=== PATIENT | female | born 1935 | race Caucasian/White ===

== ENCOUNTER 2021-08-12 09:10 | Inpatient (IN) | payer MEDICARE, OTHER ==
[2021-08-12] MEDS ORDERED: Norepinephrine 8 MG/0.9% NS 250 ML ONE (09:19)
[2021-08-12 09:48] LABS: Actual Bicarbonate (HCO3a) 26.2 mEq/L (22-28); Analyzer IN Cardio ER; Base Excess (BEa) 0.7 mEq/L (-2.0 to +3.0); CO2 Tension 45.8 mmHg (35.0-45.0); Calcium, Ionized (arterial) 1.19 mmol/L (1.12-1.30); Carboxyhemoglobin (COHb) 0.1 gm% (0.0-3.0); Hemoglobin (Hb) 11.9 g/dL (12.0-16.0); O2 Tension (PaO2), arterial 127.6 mmHg (> 60.0); Potassium - ABG Lab 3.93 mmol/L (3.70-5.30); pH, Arterial 7.38 (7.35-7.45)
[2021-08-12 09:57] LABS: Puncture Site RRA
[2021-08-12] MEDS ORDERED: fentaNYL Citrate-0.9 % NaCl/PF 100 ML IVPB SCH (10:00)
[2021-08-12] MEDS ORDERED: Fentanyl CADD 100 ML IV SCH (10:00)
[2021-08-12] MEDS ORDERED: Bisacodyl 5 MG TAB PO PRN (11:10)
[2021-08-12] MEDS ORDERED: Acetaminophen 325 MG TAB PER TUBE PRN (11:10)
[2021-08-12] MEDS ORDERED: Ondansetron PF 4 MG/2 ML Vial IVP PRN (11:10)
[2021-08-12] MEDS ORDERED: Cefepime 2 GM in Sodium Chloride 0.9% 100 ML IVPB SCH ×3 (11:12→21:00)
[2021-08-12 11:27] LABS: Hemoglobin 11.6 g/dL (12.0-16.0); Mean Corpuscular HGB CONC 30.8 g/dL (32.0-36.0); Mean Corpuscular Hemoglobin 30.8 pg (27.0-31.0); Mean Corpuscular Volume 99.7 fL (78.0-98.0); Mean Platelet Volume 9.3 fL (7.4-10.4); Platelet Count 124 thou/uL (130-400); RBC Distribution Width 14.3 % (11.5-14.5); Red Blood Cell (RBC) Count 3.76 mill/uL (4.20-5.40); White Blood Cell (WBC) Count 5.5 thou/uL (4.8-10.8)
[2021-08-12] MEDS ORDERED: Ventilator Sedation Protocol 1 EACH FS SCH (11:35)
[2021-08-12] MEDS ORDERED: Norepinephrine 8 MG/0.9% NS 250 ML IVPB SCH (11:45)
[2021-08-12 11:56] LABS: Hemoglobin A1c 5.1 % (4.0-6.0)
[2021-08-12 12:25] LABS: INR-International Normal Ratio 1.4; Prothrombin Time 17.8 sec (12.0-14.7)
[2021-08-12 12:26] LABS: PTT 33.2 sec (22.9-36.1)
[2021-08-12] MEDS ORDERED: Morphine 2 MG/ML VIAL SLOW IVP PRN (12:30)
[2021-08-12] MEDS ORDERED: fentaNYL Citrate-0.9 % NaCl/PF 100 ML IV SCH (12:30)
[2021-08-12] MEDS ORDERED: Propofol 1,000 MG/100 ML VIAL IV PRN (12:30)
[2021-08-12] MEDS ORDERED: DISCONTINUE PREVIOUS NARCOTIC PAIN MEDICATIONS AND BENZODIAZEPINES FS SCH (12:30)
[2021-08-12] MEDS ORDERED: Lorazepam 2 MG/ML VIAL SLOW IVP PRN (12:30)
[2021-08-12] MEDS ORDERED: Propofol BOLUS 1,000 MG/100 ML VIAL IV PRN (12:30)
[2021-08-12] MEDS ORDERED: Fentanyl BOLUS 250 ML IVPB PRN (12:30)
[2021-08-12 13:31] LABS: Troponin I 0.059 ng/mL (< 0.028)
[2021-08-12] MEDS: methylPREDNISolone Sod Succ 40 MG VIAL IVP SCH ×2 (14:10→20:15)
[2021-08-12] MEDS: VANCOMYCIN 1.25 GM/250 ML BAG 1.25 GM in Premix Bag 1 BAG IVPB SCH (17:20)
[2021-08-12 18:06] LABS: Strep pneumo Urine Ag NEGATIVE (NEGATIVE)
[2021-08-12] MEDS: Senokot S 8.6-50 MG TAB PER TUBE SCH (20:15)
[2021-08-12] MEDS: Atorvastatin Calcium 40 MG TAB PO SCH (20:15)
[2021-08-12] MEDS: Dorzolamide HCl 2% Ophth Soln 10 ml Bottle EA EYE SCH (20:16)
[2021-08-12] MEDS: Brimonidine Tartrate 0.2% Ophth Soln 5 ml Bottle EA EYE SCH (20:16)
[2021-08-12] MEDS: Montelukast Sodium 10 mg Tablet PO SCH (20:16)
[2021-08-12] MEDS: Famotidine/PF 20 mg/2ml Vial SLOW IVP SCH (20:17)
[2021-08-12] MEDS: Enoxaparin Sodium 80 MG/0.8 ML SYRINGE SC SCH (20:17)
[2021-08-12] MEDS: Latanoprost 0.005% Ophth Soln 2.5 ml Bottle EA EYE SCH (20:19)
[2021-08-12] MEDS ORDERED: Non-Formulary Item 1 EACH (Bimatoprost [Lumigan] 5 ML Drops) OP SCH (21:00)
[2021-08-12] MEDS: Sodium Chloride 0.9% 1,000 ML IV SCH (22:33)
[2021-08-13] MEDS: methylPREDNISolone Sod Succ 40 MG VIAL IVP SCH ×3 (00:27→20:26)
[2021-08-13] MEDS ORDERED: Cefepime 2 GM in Sodium Chloride 0.9% 100 ML IVPB SCH (01:00)
[2021-08-13 03:47] LABS: #Lymphocytes 0.5 thou/uL (1.20-3.40); #Monocytes 0.1 thou/uL (0.11-0.59); #Neutrophils 3.5 thou/uL (1.40-6.50); %Eosinophils 0.1 % (0.0-10.0); %Lymphocytes 11.1 % (21.0-51.0); %Monocytes 2.6 % (0.0-10.0); %Neutrophils 86.2 % (42.0-75.0); Hemoglobin 10.7 g/dL (12.0-16.0); Mean Corpuscular HGB CONC 32.8 g/dL (32.0-36.0); Mean Corpuscular Hemoglobin 31.7 pg (27.0-31.0); Mean Corpuscular Volume 96.5 fL (78.0-98.0); Mean Platelet Volume 7.6 fL (7.4-10.4); Platelet Count 153 thou/uL (130-400); RBC Distribution Width 14.4 % (11.5-14.5); Red Blood Cell (RBC) Count 3.37 mill/uL (4.20-5.40); White Blood Cell (WBC) Count 4.1 thou/uL (4.8-10.8)
[2021-08-13 03:51] LABS: INR-International Normal Ratio 1.8; Prothrombin Time 20.9 sec (12.0-14.7)
[2021-08-13 03:52] LABS: PTT 40.1 sec (22.9-36.1)
[2021-08-13 04:09] LABS: ALT (SGPT) 7 U/L (8-55); AST (SGOT) 17 U/L (5-34); Albumin 3.1 g/dL (3.4-4.8); Alkaline Phosphatase 88 U/L (40-110); Anion Gap 12 mmol/L (10-20); BUN (Urea Nitrogen) 24 mg/dL (9.8-20.1); Bilirubin, Direct 0.6 mg/dL (0.1-0.3); Bilirubin, Total 1.1 mg/dL (0.2-1.2); CRP (Inflammatory) 1.09 mg/dL (= or < 0.5); Calc. Creatinine Clearance 61 mL/min (70-130); Carbon Dioxide 28 mmol/L (23-31); Cardiac Risk 2.2 (Less than 4.5); Chloride 101 mmol/L (98-107); Cholesterol 119 mg/dl (< 200 Desired); Glucose 131 mg/dL (83-110); HDL Cholesterol 55 mg/dL (>60 Neg Risk); LDL Cholesterol, Calculated 52 mg/dL; Magnesium 1.9 mg/dL (1.6-2.6); Potassium 4.2 mmol/L (3.5-5.1); Protein, Total 5.8 g/dL (5.8-8.1); Sodium 137 mmol/L (136-145); Triglycerides 58 mg/dL (Less than 150)
[2021-08-13] MEDS: Levothyroxine Sodium 50 MCG TAB PO SCH (05:01)
[2021-08-13] MEDS: Famotidine/PF 20 mg/2ml Vial SLOW IVP SCH ×2 (08:39→20:26)
[2021-08-13] MEDS: Enoxaparin Sodium 80 MG/0.8 ML SYRINGE SC SCH ×2 (08:40→20:27)
[2021-08-13] MEDS: Senokot S 8.6-50 MG TAB PER TUBE SCH ×2 (08:40→20:26)
[2021-08-13] MEDS: Dorzolamide HCl 2% Ophth Soln 10 ml Bottle EA EYE SCH ×2 (08:44→20:27)
[2021-08-13] MEDS: Brimonidine Tartrate 0.2% Ophth Soln 5 ml Bottle EA EYE SCH ×2 (08:50→20:27)
[2021-08-13] MEDS ORDERED: hydrALAZINE 20 MG/ML VIAL ONE (14:46)
[2021-08-13] MEDS: VANCOMYCIN 1.25 GM/250 ML BAG 1.25 GM in Premix Bag 1 BAG IVPB SCH (14:48)
[2021-08-13] MEDS: hydrALAZINE 20 MG/ML VIAL SLOW IVP PRN (14:55)
[2021-08-13] MEDS ORDERED: Ramipril 5 MG CAP PO SCH (16:45)
[2021-08-13] MEDS ORDERED: Amlodipine 10 MG TAB PO SCH (16:45)
[2021-08-13] MEDS: Sodium Chloride 0.9% 1,000 ML IV SCH (17:06)
[2021-08-13] MEDS: Warfarin Sodium 5 MG TAB PO SCH (17:08)
[2021-08-13] MEDS: Montelukast Sodium 10 mg Tablet PO SCH (20:26)
[2021-08-13] MEDS: Atorvastatin Calcium 40 MG TAB PO SCH (20:26)
[2021-08-13] MEDS: Latanoprost 0.005% Ophth Soln 2.5 ml Bottle EA EYE SCH (20:27)
[2021-08-14] MEDS: Levothyroxine Sodium 50 MCG TAB PO SCH (06:19)
[2021-08-14] MEDS: Enoxaparin Sodium 80 MG/0.8 ML SYRINGE SC SCH (08:16)
[2021-08-14] MEDS: methylPREDNISolone Sod Succ 40 MG VIAL IVP SCH (08:16)
[2021-08-14] MEDS: Amlodipine 10 MG TAB PO SCH (08:16)
[2021-08-14] MEDS: Ramipril 5 MG CAP PO SCH (08:16)
[2021-08-14] MEDS: Famotidine/PF 20 mg/2ml Vial SLOW IVP SCH ×2 (08:16→20:11)
[2021-08-14] MEDS: Senokot S 8.6-50 MG TAB PER TUBE SCH ×2 (08:17→20:18)
[2021-08-14] MEDS: Brimonidine Tartrate 0.2% Ophth Soln 5 ml Bottle EA EYE SCH ×2 (08:17→20:11)
[2021-08-14] MEDS: Dorzolamide HCl 2% Ophth Soln 10 ml Bottle EA EYE SCH ×2 (08:17→20:09)
[2021-08-14 08:44] LABS: #Lymphocytes 0.6 thou/uL (1.20-3.40); #Monocytes 0.4 thou/uL (0.11-0.59); #Neutrophils 7.1 thou/uL (1.40-6.50); %Eosinophils 0.2 % (0.0-10.0); %Lymphocytes 6.8 % (21.0-51.0); %Monocytes 4.7 % (0.0-10.0); %Neutrophils 88.4 % (42.0-75.0); Hemoglobin 11.7 g/dL (12.0-16.0); Mean Corpuscular HGB CONC 31.3 g/dL (32.0-36.0); Mean Corpuscular Hemoglobin 30.7 pg (27.0-31.0); Platelet Count 183 thou/uL (130-400); RBC Distribution Width 14.9 % (11.5-14.5); White Blood Cell (WBC) Count 8.1 thou/uL (4.8-10.8)
[2021-08-14 08:57] LABS: Anion Gap 13 mmol/L (10-20); BUN (Urea Nitrogen) 27 mg/dL (9.8-20.1); Calc. Creatinine Clearance 65 mL/min (70-130); Calcium 9.2 mg/dL (7.8-10.44); Carbon Dioxide 29 mmol/L (23-31); Chloride 100 mmol/L (98-107); Glucose 91 mg/dL (83-110); Magnesium 1.9 mg/dL (1.6-2.6); Potassium 4.4 mmol/L (3.5-5.1); Sodium 138 mmol/L (136-145)
[2021-08-14 09:06] LABS: INR-International Normal Ratio 2.5; Prothrombin Time 27.6 sec (12.0-14.7)
[2021-08-14 09:07] LABS: PTT 46.5 sec (22.9-36.1)
[2021-08-14 14:29] LABS: Vancomycin, Trough 8.3 ug/mL
[2021-08-14] MEDS: Warfarin Sodium 5 MG TAB PO SCH (16:57)
[2021-08-14] MEDS: Atorvastatin Calcium 40 MG TAB PO SCH (20:15)
[2021-08-14] MEDS: Montelukast Sodium 10 mg Tablet PO SCH (20:16)
[2021-08-14] MEDS: Latanoprost 0.005% Ophth Soln 2.5 ml Bottle EA EYE SCH (20:20)
[2021-08-15 01:23] LABS: #Lymphocytes 0.6 thou/uL (1.20-3.40); #Monocytes 0.6 thou/uL (0.11-0.59); #Neutrophils 5.7 thou/uL (1.40-6.50); %Eosinophils 0.1 % (0.0-10.0); %Lymphocytes 8.2 % (21.0-51.0); %Monocytes 9.2 % (0.0-10.0); %Neutrophils 82.6 % (42.0-75.0); Hemoglobin 11.5 g/dL (12.0-16.0); Mean Corpuscular HGB CONC 32.5 g/dL (32.0-36.0); Mean Corpuscular Hemoglobin 31.6 pg (27.0-31.0); Mean Corpuscular Volume 97.3 fL (78.0-98.0); Mean Platelet Volume 7.5 fL (7.4-10.4); Platelet Count 184 thou/uL (130-400); RBC Distribution Width 14.7 % (11.5-14.5); Red Blood Cell (RBC) Count 3.64 mill/uL (4.20-5.40); White Blood Cell (WBC) Count 6.9 thou/uL (4.8-10.8)
[2021-08-15 01:32] LABS: INR-International Normal Ratio 3.6; Prothrombin Time 36.4 sec (12.0-14.7)
[2021-08-15 01:54] LABS: Chloride 102 mmol/L (98-107); Potassium 4.2 mmol/L (3.5-5.1)
[2021-08-15 01:55] LABS: Calcium 9.3 mg/dL (7.8-10.44); Glucose 75 mg/dL (83-110); Sodium 135 mmol/L (136-145)
[2021-08-15 01:57] LABS: Anion Gap 16 mmol/L (10-20); Carbon Dioxide 21 mmol/L (23-31)
[2021-08-15 01:59] LABS: Calc. Creatinine Clearance 70 mL/min (70-130)
[2021-08-15 02:00] LABS: BUN (Urea Nitrogen) 24 mg/dL (9.8-20.1)
[2021-08-15 02:01] LABS: Magnesium 1.9 mg/dL (1.6-2.6)
[2021-08-15] MEDS ORDERED: Metoprolol Tartrate 5 MG/5 ML VIAL IVP SCH (04:30)
[2021-08-15] MEDS: Levothyroxine Sodium 50 MCG TAB PO SCH (06:01)
[2021-08-15] MEDS: Ramipril 5 MG CAP PO SCH (08:49)
[2021-08-15] MEDS: Amlodipine 10 MG TAB PO SCH (08:50)
[2021-08-15] MEDS: Senokot S 8.6-50 MG TAB PER TUBE SCH ×2 (08:50→20:53)
[2021-08-15] MEDS: Famotidine/PF 20 mg/2ml Vial SLOW IVP SCH ×3 (08:50→20:51)
[2021-08-15] MEDS: methylPREDNISolone Sod Succ 40 MG VIAL IVP SCH ×2 (08:51→10:36)
[2021-08-15] MEDS: Brimonidine Tartrate 0.2% Ophth Soln 5 ml Bottle EA EYE SCH ×2 (08:51→20:52)
[2021-08-15] MEDS: Dorzolamide HCl 2% Ophth Soln 10 ml Bottle EA EYE SCH ×2 (08:52→20:52)
[2021-08-15] MEDS ORDERED: Senokot S 8.6-50 MG TAB PO PRN (17:28)
[2021-08-15] MEDS: Warfarin Sodium 5 MG TAB PO SCH (18:44)
[2021-08-15] MEDS ORDERED: Warfarin Sodium 1 MG TAB PO SCH (19:00)
[2021-08-15] MEDS: Atorvastatin Calcium 40 MG TAB PO SCH (20:51)
[2021-08-15] MEDS: Montelukast Sodium 10 mg Tablet PO SCH (20:52)
[2021-08-15] MEDS: Latanoprost 0.005% Ophth Soln 2.5 ml Bottle EA EYE SCH (20:53)
[2021-08-15] MEDS: Mometasone/Formoterol 200/5 60 PUFF INH SCH (22:58)
[2021-08-16 04:16] LABS: #Lymphocytes 0.8 thou/uL (1.20-3.40); #Monocytes 0.8 thou/uL (0.11-0.59); #Neutrophils 5.2 thou/uL (1.40-6.50); %Basophils 0.2 % (0.0-1.0); %Eosinophils 0.6 % (0.0-10.0); %Lymphocytes 11.2 % (21.0-51.0); %Monocytes 11.7 % (0.0-10.0); %Neutrophils 76.3 % (42.0-75.0); Hemoglobin 11.2 g/dL (12.0-16.0); Mean Corpuscular HGB CONC 32.2 g/dL (32.0-36.0); Mean Corpuscular Hemoglobin 31.3 pg (27.0-31.0); Mean Corpuscular Volume 97.3 fL (78.0-98.0); Mean Platelet Volume 7.8 fL (7.4-10.4); Platelet Count 174 thou/uL (130-400); RBC Distribution Width 14.7 % (11.5-14.5); Red Blood Cell (RBC) Count 3.58 mill/uL (4.20-5.40); White Blood Cell (WBC) Count 6.7 thou/uL (4.8-10.8)
[2021-08-16 04:40] LABS: PTT 40.6 sec (22.9-36.1); Prothrombin Time 44.5 sec (12.0-14.7)
[2021-08-16 04:41] LABS: Anion Gap 10 mmol/L (10-20); BUN (Urea Nitrogen) 20 mg/dL (9.8-20.1); Calc. Creatinine Clearance 71 mL/min (70-130); Carbon Dioxide 30 mmol/L (23-31); Chloride 99 mmol/L (98-107); Glucose 72 mg/dL (83-110); Magnesium 1.7 mg/dL (1.6-2.6); Potassium 3.7 mmol/L (3.5-5.1); Sodium 135 mmol/L (136-145)
[2021-08-16 04:59] LABS: INR-International Normal Ratio 4.6
[2021-08-16] MEDS: Levothyroxine Sodium 50 MCG TAB PO SCH (06:26)
[2021-08-16] MEDS: Mometasone/Formoterol 200/5 60 PUFF INH SCH ×2 (07:35→19:05)
[2021-08-16] MEDS: Potassium Chloride 20 MEQ TAB PO SCH (09:45)
[2021-08-16] MEDS: Amlodipine 10 MG TAB PO SCH (09:45)
[2021-08-16] MEDS: Ramipril 5 MG CAP PO SCH (09:45)
[2021-08-16] MEDS: Saccharomyces boulardii 250 MG CAP PO SCH (09:45)
[2021-08-16] MEDS: Famotidine/PF 20 mg/2ml Vial SLOW IVP SCH ×2 (09:46→21:04)
[2021-08-16] MEDS: methylPREDNISolone Sod Succ 40 MG VIAL IVP SCH (09:46)
[2021-08-16] MEDS: Senokot S 8.6-50 MG TAB PER TUBE SCH ×2 (09:47→21:05)
[2021-08-16] MEDS: hydrALAZINE 20 MG/ML VIAL SLOW IVP PRN (12:41)
[2021-08-16] MEDS: Brimonidine Tartrate 0.2% Ophth Soln 5 ml Bottle EA EYE SCH ×2 (12:46→21:05)
[2021-08-16] MEDS: Dorzolamide HCl 2% Ophth Soln 10 ml Bottle EA EYE SCH ×2 (12:47→21:04)
[2021-08-16] MEDS ORDERED: Warfarin Sodium 1 MG TAB PO SCH (17:00)
[2021-08-16 19:20] LABS: Vancomycin, Trough 17.5 ug/mL
[2021-08-16] MEDS: Atorvastatin Calcium 40 MG TAB PO SCH (21:04)
[2021-08-16] MEDS: Montelukast Sodium 10 mg Tablet PO SCH (21:04)
[2021-08-16] MEDS: Latanoprost 0.005% Ophth Soln 2.5 ml Bottle EA EYE SCH (21:05)
[2021-08-17 04:11] LABS: #Monocytes 0.6 thou/uL (0.11-0.59); %Eosinophils 0.1 % (0.0-10.0); %Lymphocytes 21.6 % (21.0-51.0); %Monocytes 12.2 % (0.0-10.0); %Neutrophils 66.1 % (42.0-75.0); Mean Corpuscular HGB CONC 32.5 g/dL (32.0-36.0); Mean Corpuscular Hemoglobin 31.2 pg (27.0-31.0); Mean Corpuscular Volume 95.9 fL (78.0-98.0); Platelet Count 172 thou/uL (130-400); RBC Distribution Width 14.6 % (11.5-14.5); Red Blood Cell (RBC) Count 3.51 mill/uL (4.20-5.40); White Blood Cell (WBC) Count 4.5 thou/uL (4.8-10.8)
[2021-08-17 04:18] LABS: INR-International Normal Ratio 2.3; PTT 36.9 sec (22.9-36.1)
[2021-08-17 04:35] LABS: Anion Gap 10 mmol/L (10-20); BUN (Urea Nitrogen) 18 mg/dL (9.8-20.1); Calc. Creatinine Clearance 76 mL/min (70-130); Calcium 8.9 mg/dL (7.8-10.44); Carbon Dioxide 30 mmol/L (23-31); Chloride 100 mmol/L (98-107); Glucose 100 mg/dL (83-110); Magnesium 1.7 mg/dL (1.6-2.6); Potassium 3.7 mmol/L (3.5-5.1); Sodium 136 mmol/L (136-145)
[2021-08-17] MEDS: Levothyroxine Sodium 50 MCG TAB PO SCH (05:19)
[2021-08-17] MEDS: Mometasone/Formoterol 200/5 60 PUFF INH SCH ×2 (06:54→19:02)
[2021-08-17] MEDS: Amlodipine 10 MG TAB PO SCH (10:07)
[2021-08-17] MEDS: Dorzolamide HCl 2% Ophth Soln 10 ml Bottle EA EYE SCH ×2 (10:08→20:34)
[2021-08-17] MEDS: Brimonidine Tartrate 0.2% Ophth Soln 5 ml Bottle EA EYE SCH ×2 (10:08→20:33)
[2021-08-17] MEDS: methylPREDNISolone Sod Succ 40 MG VIAL IVP SCH (10:09)
[2021-08-17] MEDS: Famotidine/PF 20 mg/2ml Vial SLOW IVP SCH ×2 (10:09→20:34)
[2021-08-17] MEDS: Saccharomyces boulardii 250 MG CAP PO SCH (10:10)
[2021-08-17] MEDS: Potassium Chloride 20 MEQ TAB PO SCH (10:10)
[2021-08-17] MEDS: Ramipril 5 MG CAP PO SCH (10:10)
[2021-08-17] MEDS: Senokot S 8.6-50 MG TAB PER TUBE SCH ×2 (10:11→20:34)
[2021-08-17 14:23] VITALS: BMI 28.0
[2021-08-17] MEDS ORDERED: guaiFENesin/DM ER PO SCH (14:45)
[2021-08-17] MEDS ORDERED: Warfarin Sodium 1.5 MG TAB PO SCH (17:00)
[2021-08-17] MEDS ORDERED: Warfarin Sodium 3 MG TAB PO SCH (18:15)
[2021-08-17] MEDS: Atorvastatin Calcium 40 MG TAB PO SCH (20:33)
[2021-08-17] MEDS: Latanoprost 0.005% Ophth Soln 2.5 ml Bottle EA EYE SCH (20:34)
[2021-08-17] MEDS: guaiFENesin/DM ER PO SCH (20:34)
[2021-08-17] MEDS: Montelukast Sodium 10 mg Tablet PO SCH (20:34)
[2021-08-18 04:58] LABS: #Monocytes 0.6 thou/uL (0.11-0.59); #Neutrophils 4.3 thou/uL (1.40-6.50); %Eosinophils 0.2 % (0.0-10.0); %Lymphocytes 16.4 % (21.0-51.0); %Monocytes 10.9 % (0.0-10.0); %Neutrophils 72.5 % (42.0-75.0); Hemoglobin 10.1 g/dL (12.0-16.0); Mean Corpuscular HGB CONC 32.3 g/dL (32.0-36.0); Mean Corpuscular Hemoglobin 31.1 pg (27.0-31.0); Mean Corpuscular Volume 96.2 fL (78.0-98.0); Mean Platelet Volume 7.9 fL (7.4-10.4); Platelet Count 169 thou/uL (130-400); RBC Distribution Width 14.7 % (11.5-14.5); Red Blood Cell (RBC) Count 3.26 mill/uL (4.20-5.40); White Blood Cell (WBC) Count 5.9 thou/uL (4.8-10.8)
[2021-08-18 05:23] LABS: Anion Gap 10 mmol/L (10-20); BUN (Urea Nitrogen) 22 mg/dL (9.8-20.1); Calc. Creatinine Clearance 67 mL/min (70-130); Calcium 8.7 mg/dL (7.8-10.44); Carbon Dioxide 30 mmol/L (23-31); Chloride 101 mmol/L (98-107); Glucose 108 mg/dL (83-110); Magnesium 1.7 mg/dL (1.6-2.6); PTT 30.7 sec (22.9-36.1); Potassium 3.8 mmol/L (3.5-5.1); Sodium 137 mmol/L (136-145)
[2021-08-18 05:24] LABS: INR-International Normal Ratio 1.9; Prothrombin Time 22.3 sec (12.0-14.7)
[2021-08-18] MEDS: Levothyroxine Sodium 50 MCG TAB PO SCH (06:02)
[2021-08-18] MEDS: Mometasone/Formoterol 200/5 60 PUFF INH SCH ×2 (07:40→18:43)
[2021-08-18] MEDS: Amlodipine 10 MG TAB PO SCH (09:00)
[2021-08-18] MEDS: Famotidine/PF 20 mg/2ml Vial SLOW IVP SCH ×2 (09:00→21:11)
[2021-08-18] MEDS: Dorzolamide HCl 2% Ophth Soln 10 ml Bottle EA EYE SCH ×2 (09:00→21:11)
[2021-08-18] MEDS: Brimonidine Tartrate 0.2% Ophth Soln 5 ml Bottle EA EYE SCH ×2 (09:00→21:11)
[2021-08-18] MEDS: Saccharomyces boulardii 250 MG CAP PO SCH (09:01)
[2021-08-18] MEDS: Ramipril 5 MG CAP PO SCH (09:01)
[2021-08-18] MEDS: methylPREDNISolone Sod Succ 40 MG VIAL IVP SCH (09:01)
[2021-08-18] MEDS: Senokot S 8.6-50 MG TAB PER TUBE SCH ×2 (09:01→21:11)
[2021-08-18] MEDS: guaiFENesin/DM ER PO SCH ×2 (09:01→21:10)
[2021-08-18] MEDS: Potassium Chloride 20 MEQ TAB PO SCH (09:01)
[2021-08-18] MEDS: Warfarin Sodium 3 MG TAB PO SCH (17:11)
[2021-08-18] MEDS: Atorvastatin Calcium 40 MG TAB PO SCH (21:10)
[2021-08-18] MEDS: Montelukast Sodium 10 mg Tablet PO SCH (21:10)
[2021-08-18] MEDS: Latanoprost 0.005% Ophth Soln 2.5 ml Bottle EA EYE SCH (21:12)
[2021-08-19 05:07] LABS: INR-International Normal Ratio 1.6; PTT 28.1 sec (22.9-36.1); Prothrombin Time 19.4 sec (12.0-14.7)
[2021-08-19 05:12] LABS: #Basophils 0.1 thou/uL (0.0-0.2); #Lymphocytes 1.2 thou/uL (1.20-3.40); #Monocytes 0.8 thou/uL (0.11-0.59); #Neutrophils 5.1 thou/uL (1.40-6.50); %Eosinophils 0.1 % (0.0-10.0); %Lymphocytes 16.4 % (21.0-51.0); %Monocytes 11.3 % (0.0-10.0); %Neutrophils 71.1 % (42.0-75.0); Hemoglobin 10.4 g/dL (12.0-16.0); Mean Corpuscular HGB CONC 32.2 g/dL (32.0-36.0); Mean Corpuscular Hemoglobin 31.5 pg (27.0-31.0); Mean Corpuscular Volume 97.8 fL (78.0-98.0); Mean Platelet Volume 7.8 fL (7.4-10.4); Platelet Count 168 thou/uL (130-400); RBC Distribution Width 15.1 % (11.5-14.5); Red Blood Cell (RBC) Count 3.29 mill/uL (4.20-5.40); White Blood Cell (WBC) Count 7.2 thou/uL (4.8-10.8)
[2021-08-19] MEDS: Levothyroxine Sodium 50 MCG TAB PO SCH (05:19)
[2021-08-19 05:21] LABS: Anion Gap 10 mmol/L (10-20); BUN (Urea Nitrogen) 20 mg/dL (9.8-20.1); Calc. Creatinine Clearance 71 mL/min (70-130); Calcium 8.8 mg/dL (7.8-10.44); Carbon Dioxide 30 mmol/L (23-31); Chloride 101 mmol/L (98-107); Glucose 85 mg/dL (83-110); Magnesium 1.9 mg/dL (1.6-2.6); Potassium 3.8 mmol/L (3.5-5.1); Sodium 137 mmol/L (136-145)
[2021-08-19] MEDS: Mometasone/Formoterol 200/5 60 PUFF INH SCH (07:34)
[2021-08-19] MEDS: Amlodipine 10 MG TAB PO SCH (08:55)
[2021-08-19] MEDS: Ramipril 5 MG CAP PO SCH (08:55)
[2021-08-19] MEDS: Saccharomyces boulardii 250 MG CAP PO SCH (08:55)
[2021-08-19] MEDS: Senokot S 8.6-50 MG TAB PER TUBE SCH (08:55)
[2021-08-19] MEDS: Potassium Chloride 20 MEQ TAB PO SCH (08:55)
[2021-08-19] MEDS: guaiFENesin/DM ER PO SCH (08:55)
[2021-08-19] MEDS: Famotidine/PF 20 mg/2ml Vial SLOW IVP SCH (08:55)
[2021-08-19] MEDS: methylPREDNISolone Sod Succ 40 MG VIAL IVP SCH (08:55)
[2021-08-19] MEDS: Dorzolamide HCl 2% Ophth Soln 10 ml Bottle EA EYE SCH (08:56)
[2021-08-19] MEDS: Brimonidine Tartrate 0.2% Ophth Soln 5 ml Bottle EA EYE SCH (08:56)
[2021-08-19 12:00] VITALS: TEMP 98.2
[2021-08-19] MEDS ORDERED: Enoxaparin Sodium 80 MG/0.8 ML SYRINGE SC SCH ×3 (12:00→21:00)
[2021-08-19 15:59] VITALS: BP 129/64
[2021-08-19] MEDS: Warfarin Sodium 3 MG TAB PO SCH (16:48)
== END 2021-08-19 18:41 | DRG 208 ==
LOC: ERS 09:10 → CCU 10:26 → 2NO 08-15 05:09
PROVIDERS: ADMIT Family Medicine; ATTEND Internal Medicine
PROC: 5A1945Z Respiratory Ventilation, 24-96 Consecutive Hours (ICD-10-PCS; principal; 2021-08-12)
PROC: 0D9670Z Drainage of Stomach with Drainage Device, Via Natural or Artificial Opening (ICD-10-PCS; 2021-08-12)
PROC: 3E033XZ Introduction of Vasopressor into Peripheral Vein, Percutaneous Approach (ICD-10-PCS; 2021-08-12)
PROC: 5A09357 Assistance with Respiratory Ventilation, Less than 24 Consecutive Hours, Continuous Positive Airway Pressure (ICD-10-PCS; 2021-08-13)
PROC: 3E0G76Z Introduction of Nutritional Substance into Upper GI, Via Natural or Artificial Opening (ICD-10-PCS; 2021-08-17)
DX: J44.1 Chronic obstructive pulmonary disease with (acute) exacerbation (principal); J96.21 Acute and chronic respiratory failure with hypoxia; J96.22 Acute and chronic respiratory failure with hypercapnia; E87.2 Acidosis; E87.1 Hypo-osmolality and hyponatremia; F05 Delirium due to known physiological condition; I24.8 Other forms of acute ischemic heart disease; Z20.822 Contact with and (suspected) exposure to COVID-19; R79.1 Abnormal coagulation profile; E88.09 Other disorders of plasma-protein metabolism, not elsewhere classified; I08.3 Combined rheumatic disorders of mitral, aortic and tricuspid valves; E03.9 Hypothyroidism, unspecified; I10 Essential (primary) hypertension; I25.10 Atherosclerotic heart disease of native coronary artery without angina pectoris; R68.0 Hypothermia, not associated with low environmental temperature; I45.10 Unspecified right bundle-branch block; D64.9 Anemia, unspecified; R94.31 Abnormal electrocardiogram [ECG] [EKG]; D69.6 Thrombocytopenia, unspecified; I95.89 Other hypotension; F41.9 Anxiety disorder, unspecified; R13.12 Dysphagia, oropharyngeal phase; Z88.1 Allergy status to other antibiotic agents; Z78.1 Physical restraint status; Z88.7 Allergy status to serum and vaccine; Z88.8 Allergy status to other drugs, medicaments and biological substances; Z95.2 Presence of prosthetic heart valve; Z98.49 Cataract extraction status, unspecified eye; Z95.1 Presence of aortocoronary bypass graft; Z98.890 Other specified postprocedural states; Z79.01 Long term (current) use of anticoagulants; Z99.81 Dependence on supplemental oxygen; Z79.899 Other long term (current) drug therapy; Z79.890 Hormone replacement therapy; Z79.51 Long term (current) use of inhaled steroids; Z87.891 Personal history of nicotine dependence
CPT/HCPCS: 36415; 36600; 71045; 74230; 80048; 80061; 80076; 80202; 82805; 83036; 83605; 83735; 84145; 84443; 85025; 85610; 85730; 86140; 86850; 86900; 86901; 87070; 87077; 87081; 87186; 87205; 87449; 93005; 93010; 93306; 94002; 94003; 94640; 94660; 96365; 99292; J0360; J0692; J1650; J1956; J2270; J2920; J3010; J3370; J3490; J7030; J7050; J7620; S0028

== ENCOUNTER 2023-03-02 20:19 | Inpatient (IN) | payer MEDICARE, OTHER ==
[2023-03-02] MEDS ORDERED: Acetaminophen 325 MG TAB PO PRN (23:54)
[2023-03-02] MEDS ORDERED: Ondansetron ODT 4 MG TAB PO PRN (23:54)
[2023-03-02] MEDS ORDERED: Calcium Carbonate 500 MG ChewTAB PO PRN (23:54)
[2023-03-03 00:28] VITALS: BMI 28.4
[2023-03-03] MEDS: Ipratropium/Albuterol 3 ML NEB NEB SCH ×5 (00:50→23:16)
[2023-03-03 04:22] LABS: #Monocytes 0.1 thou/uL (0.11-0.59); #Neutrophils 3.3 thou/uL (1.40-6.50); %Lymphocytes 9.9 % (21.0-51.0); %Monocytes 2.4 % (0.0-10.0); %Neutrophils 87.2 % (42.0-75.0); Hematocrit 31.9 % (36.0-47.0); Mean Corpuscular HGB CONC 31.3 g/dL (32.0-36.0); Mean Corpuscular Hemoglobin 30.7 pg (27.0-31.0); Mean Corpuscular Volume 97.9 fl (78.0-98.0); Mean Platelet Volume 9.9 fL (7.4-10.4); Platelet Count 149 10x3/uL (130-400); Red Blood Cell (RBC) Count 3.26 mill/uL (4.20-5.40); White Blood Cell (WBC) Count 3.8 10x3/uL (4.8-10.8)
[2023-03-03 04:39] LABS: INR-International Normal Ratio 3.8; Prothrombin Time 39.3 sec (12.0-14.7)
[2023-03-03 04:48] LABS: Anion Gap 11 mmol/L (10-20); BUN (Urea Nitrogen) 21 mg/dL (9.8-20.1); Calc. Creatinine Clearance 57 mL/min (70-130); Calcium 9.2 mg/dL (7.8-10.44); Carbon Dioxide 28 mmol/L (23-31); Chloride 101 mmol/L (98-107); Estimated GFR 67; Glucose 142 mg/dL (83-110); Potassium 4.3 mmol/L (3.5-5.1); Sodium 136 mmol/L (136-145)
[2023-03-03] MEDS: Ramipril 5 MG CAP PO SCH (08:40)
[2023-03-03] MEDS: Montelukast Sodium 10 mg Tablet PO SCH (08:42)
[2023-03-03] MEDS: Potassium Chloride 20 MEQ TAB PO SCH (08:42)
[2023-03-03] MEDS: Atorvastatin Calcium 20 MG TAB PO SCH (08:42)
[2023-03-03] MEDS: Amlodipine 10 MG TAB PO SCH ×2 (08:42→20:20)
[2023-03-03] MEDS: methylPREDNISolone Sod Succ 40 MG VIAL IVP SCH ×2 (08:43→20:21)
[2023-03-03] MEDS: Levothyroxine Sodium 50 MCG TAB PO SCH (08:43)
[2023-03-03] MEDS ORDERED: Warfarin Sodium 5 MG TAB PO SCH (09:00)
[2023-03-03] MEDS ORDERED: Famotidine 20 MG TAB PO SCH (09:00)
[2023-03-03] MEDS: Brimonidine Tartrate 0.2% Ophth Soln 5 ml Bottle EA EYE SCH (11:35)
[2023-03-03] MEDS: Dorzolamide HCl 2% Ophth Soln 10 ml Bottle EA EYE SCH (11:36)
[2023-03-03] MEDS ORDERED: Latanoprost 0.005% Ophth Soln 2.5 ml Bottle EA EYE SCH (21:00)
[2023-03-04 04:31] LABS: #Monocytes 0.2 thou/uL (0.11-0.59); #Neutrophils 6.3 thou/uL (1.40-6.50); %Lymphocytes 7.3 % (21.0-51.0); %Monocytes 2.2 % (0.0-10.0); %Neutrophils 90.1 % (42.0-75.0); Hemoglobin 9.6 g/dL (12.0-16.0); Mean Corpuscular Volume 96.9 fl (78.0-98.0); Mean Platelet Volume 10.5 fL (7.4-10.4); Platelet Count 164 10x3/uL (130-400); RBC Distribution Width 14.3 % (11.5-14.5)
[2023-03-04 04:56] LABS: INR-International Normal Ratio 3.9; Prothrombin Time 40.2 sec (12.0-14.7)
[2023-03-04 05:10] LABS: Anion Gap 13 mmol/L (10-20); BUN (Urea Nitrogen) 28 mg/dL (9.8-20.1); Calc. Creatinine Clearance 41 mL/min (70-130); Calcium 9.3 mg/dL (7.8-10.44); Carbon Dioxide 28 mmol/L (23-31); Chloride 103 mmol/L (98-107); Estimated GFR 46; Glucose 130 mg/dL (83-110); Potassium 4.5 mmol/L (3.5-5.1); Sodium 139 mmol/L (136-145)
[2023-03-04] MEDS: Levothyroxine Sodium 50 MCG TAB PO SCH (05:24)
[2023-03-04] MEDS: Ipratropium/Albuterol 3 ML NEB NEB SCH ×2 (07:15→13:30)
[2023-03-04] MEDS: Atorvastatin Calcium 20 MG TAB PO SCH (08:56)
[2023-03-04] MEDS: Montelukast Sodium 10 mg Tablet PO SCH (08:56)
[2023-03-04] MEDS: Potassium Chloride 20 MEQ TAB PO SCH (08:56)
[2023-03-04] MEDS: Ramipril 5 MG CAP PO SCH (08:56)
[2023-03-04] MEDS: Brimonidine Tartrate 0.2% Ophth Soln 5 ml Bottle EA EYE SCH (08:56)
[2023-03-04] MEDS: Amlodipine 10 MG TAB PO SCH (08:57)
[2023-03-04] MEDS: methylPREDNISolone Sod Succ 40 MG VIAL IVP SCH (08:57)
[2023-03-04] MEDS: Dorzolamide HCl 2% Ophth Soln 10 ml Bottle EA EYE SCH (08:57)
[2023-03-04 12:12] VITALS: BP 126/61; TEMP 97.9
[2023-03-05] MEDS ORDERED: Warfarin Sodium 5 MG TAB PO SCH (17:00)
== END 2023-03-04 17:35 | disposition home or self-care (01) | DRG 189 ==
LOC: 2SW 20:19 → OBSVTOIN 03-03 11:27
PROVIDERS: ADMIT Student in an Organized Health Care Education/Training Program; ATTEND Internal Medicine
DX: J96.21 Acute and chronic respiratory failure with hypoxia (principal); J44.1 Chronic obstructive pulmonary disease with (acute) exacerbation; N17.9 Acute kidney failure, unspecified; H40.9 Unspecified glaucoma; E03.9 Hypothyroidism, unspecified; Z88.8 Allergy status to other drugs, medicaments and biological substances; Z88.7 Allergy status to serum and vaccine; Z79.899 Other long term (current) drug therapy; Z79.01 Long term (current) use of anticoagulants; Z95.1 Presence of aortocoronary bypass graft; Z98.41 Cataract extraction status, right eye; Z98.42 Cataract extraction status, left eye; Z95.2 Presence of prosthetic heart valve; I25.10 Atherosclerotic heart disease of native coronary artery without angina pectoris; I12.9 Hypertensive chronic kidney disease with stage 1 through stage 4 chronic kidney disease, or unspecified chronic kidney disease; N18.2 Chronic kidney disease, stage 2 (mild); D63.1 Anemia in chronic kidney disease; R79.1 Abnormal coagulation profile; D53.9 Nutritional anemia, unspecified
CPT/HCPCS: 36415; 80048; 85025; 85610; 94640; 96374; G0378; J2920; J7620